=== PATIENT | female | born 1975 | race African-American/Black ===

== ENCOUNTER 2020-04-06 11:20 | Outpatient (CLI) | payer MEDICARE, MEDICAID ==
[~2020-04-06] VITALS: Ht 167.6 cm; Wt 88.5 kg
== END 2020-04-06 12:39 | disposition home or self-care (01) ==
LOC: LAB 11:20 → EDSTATUS 04-11 15:35
PROVIDERS: ATTEND Internal Medicine Cardiovascular Disease
DX: Z20.822 Contact with and (suspected) exposure to COVID-19 (principal); R94.39 Abnormal result of other cardiovascular function study; Z88.8 Allergy status to other drugs, medicaments and biological substances; Z68.31 Body mass index [BMI] 31.0-31.9, adult

== ENCOUNTER → 2020-06-16 | Day surgery (SDC) | payer MEDICARE, MEDICAID ==
[~2020-06-16] VITALS: Ht 167.6 cm; Wt 89.8 kg
[~2020-06-16] MED LIST: ACET-1156 PO; ACET-1304 PO; ALPR0.25 PO; AMLO-489 PO; ANGIOMAX 250 MG VIAL IV ONE; ASPI-543 PO; ATOR40TA52 PO; FER325T PO; FOLI1TAB6 PO; HEPARIN SODIUM (PORCINE) 5000 UNITS/ML 1ML VIAL ONE; IOHEXOL 350 MG/ML 100ML IJ ONE; LEVE100020 PO; LIDOCAINE 2%HCL (LOCAL ANESTH.) INJ 20ML MDV ONE; MECL25TA18 PO; MIDAZOLAM HCL 1MG/1ML-2 ML VIAL ONE; OMEP20TA PO; SODIUM CHL 0.9% 0 ML ONE; VERAPAMIL 2.5MG/ML INJ 2ML VIAL IV ONE; fentaNYL CITRATE 100 MCG/2 ML VL ONE
== END | disposition home or self-care (01) ==
LOC: CATH 07:34
PROVIDERS: ATTEND Internal Medicine Cardiovascular Disease
DX: R94.39 Abnormal result of other cardiovascular function study (principal); G40.909 Epilepsy, unspecified, not intractable, without status epilepticus; Z20.822 Contact with and (suspected) exposure to COVID-19; Z98.890 Other specified postprocedural states; Z86.73 Personal history of transient ischemic attack (TIA), and cerebral infarction without residual deficits; Z88.8 Allergy status to other drugs, medicaments and biological substances; Z68.32 Body mass index [BMI] 32.0-32.9, adult; Z79.899 Other long term (current) drug therapy
CPT/HCPCS: 93458; C1887; C1894; J1644; J2250; J3010; U0003; 99152